=== PATIENT | male | born 1940 | race Caucasian/White ===

== ENCOUNTER → 2018-03-13 | Outpatient (CLI) | payer OTHER ==
[~2018-03-13] MED LIST: ATENOLOL-CHLOR1 EAC1 PO; CLOPIDOGREL75 MG PO
--- NOTE | 2018-03-13 09:28 | Diagnostic Imaging Report ---
PROCEDURE: X-RAY CHEST, TWO VIEWS COMPARISON: Patients [facility], DX, CHEST 2 VIEWS, 04/16/2017, 8:46. INDICATIONS: CHRONIC OBSTRUCTIVE PULMONARY DISORDER FINDINGS: LUNGS: No consolidations or edema. Lungs are hyperexpanded with flattening of the hemidiaphragms. PLEURA: No effusions or pneumothorax. HEART \T\ MEDIASTINUM: The heart is within normal size-limits. Prominent epicardial fat pads. BONES \T\ SOFT TISSUES: Degenerative changes of the spine. CONCLUSION: No acute thoracic abnormality. Vlad Sams D.O. Dictated by: Vlad Sams D.O. on 03/13/2018 at 9:31 Electronically approved by: Vlad Sams D.O. on 03/13/2018 at 9:31
== END ==
LOC: RAD 08:27
PROVIDERS: ATTEND Family Medicine
DX: J44.9 Chronic obstructive pulmonary disease, unspecified (principal)
CPT/HCPCS: 71046

== ENCOUNTER 2025-04-26 10:24 | Inpatient (IN) | payer MEDICARE, OTHER ==
[2025-04-26] VITALS (9 sets, daily range): BP systolic 129–137; BP diastolic 59–66; PULSE 58–89; RESP 16–18; TEMP 97.3–98.1; O2SAT 97–100
[~2025-04-26] VITALS: Ht 180.3 cm; Wt 104.3 kg
[2025-04-26] MEDS ORDERED: Vancomycin IV 1.25 GM in SODIUM CHLORIDE 0.9% 250ML 250 ML IV SCH (10:45)
[2025-04-26] MEDS ORDERED: LOSARTAN POTAS100 MG PO (10:49)
[2025-04-26] MEDS ORDERED: AMLODIPINE BESYL5 MG PO (10:49)
[2025-04-26] MEDS ORDERED: ATORVASTATIN CA40 MG PO (10:49)
[2025-04-26] MEDS ORDERED: FUROSEMIDE20 MG PO (10:49)
[2025-04-26] MEDS ORDERED: ASPIRIN EC81 MG PO (10:49)
[2025-04-26] MEDS ORDERED: LOPRESSOR25 MG PO (10:49)
[2025-04-26] MEDS ORDERED: GABAPENTIN300 MG PO (10:49)
[2025-04-26] MEDS ORDERED: ELIQUIS2.5 MG PO (10:49)
[2025-04-26] MEDS ORDERED: AMIODARONE HCL200 MG PO (10:49)
[2025-04-26 11:07] LABS: BASOPHILS % 0.6 % (0.0-1.0); EOSINOPHILS % 1.3 % (0.0-6.0); LYMPHOCYTES % 12.1 % (18.0-39.1); MONOCYTES % 8.1 % (4.4-11.3); NEUTROPHILS % 77.5 % (38.7-80.0); RED CELL DISTRIBUTION WIDTH 16.6 % (11.7-14.4)
[2025-04-26] MEDS: CEFEPIME 2 GM in SODIUM CHLORIDE 0.9% 100 ML IV ONE (11:10)
[2025-04-26 11:25] LABS: EST GLOMERULAR FILTRATION RATE 35.0 ML/MIN (>=60)
[2025-04-26] MEDS: Vancomycin IV 1.25 GM in SODIUM CHLORIDE 0.9% 250ML 250 ML IV ONE (12:21)
[2025-04-26] MEDS: Vancomycin IV 2 GM in SODIUM CHLORIDE 0.9% 250ML 250 ML IV ONE (12:27)
[2025-04-26] MEDS ORDERED: ONDANSETRON HCL INJ 2MG/ML 2ML 2 MG/ML VIAL IV PRN (13:45)
[2025-04-26] MEDS ORDERED: SODIUM CHLORIDE FLUSH 10 ML SYR INJ PRN (13:45)
[2025-04-26] MEDS ORDERED: HYDROCODONE/APAP 5MG-325MG TAB PO PRN (13:45)
[2025-04-26] MEDS ORDERED: DOCUSATE SODIUM 100 MG CAP PO PRN (17:15)
[2025-04-26] MEDS ORDERED: METOPROLOL TARTRATE INJ 1 MG/ML VIAL IV PRN (17:15)
[2025-04-26] MEDS ORDERED: ACETAMINOPHEN 325 MG TAB PO PRN (17:15)
[2025-04-26] MEDS ORDERED: ALBUTEROL/IPRATROPIUM 3 ML NEB NEB PRN (17:15)
[2025-04-26] MEDS: SODIUM CHLORIDE 0.45% 1,000 ML IV SCH (18:14)
[2025-04-26] MEDS: ATORVASTATIN 40 MG TAB PO SCH (21:31)
[2025-04-26] MEDS: CALCIUM CARBONATE/VITAMIN D3 500 MG TAB PO SCH (21:31)
[2025-04-27] VITALS (8 sets, daily range): BP systolic 134–151; BP diastolic 56–66; PULSE 53–78; RESP 12–20; TEMP 97.5–98; O2SAT 96–100
[2025-04-27 06:57] LABS: BASOPHILS % 0.7 % (0.0-1.0); EOSINOPHILS % 3.7 % (0.0-6.0); LYMPHOCYTES % 21.0 % (18.0-39.1); MONOCYTES % 10.2 % (4.4-11.3); NEUTROPHILS % 64.0 % (38.7-80.0); RED CELL DISTRIBUTION WIDTH 16.3 % (11.7-14.4)
[2025-04-27 07:29] LABS: EST GLOMERULAR FILTRATION RATE 53.0 ML/MIN (>=60)
[2025-04-27] MEDS: Doxycycline IV 100 MG in SODIUM CHLORIDE 0.9% 100 ML IV SCH (09:53)
[2025-04-27] MEDS: AMIODARONE HCL 200 MG TAB PO SCH (09:54)
[2025-04-27] MEDS: METOPROLOL TARTRATE 25 MG TAB PO SCH (09:55)
[2025-04-27] MEDS: AMLODIPINE BESYLATE 5 MG TAB PO SCH (09:55)
[2025-04-27] MEDS: MELATONIN 3 MG TAB PO PRN (20:42)
[2025-04-28] VITALS: BP 136/54; PULSE 60; RESP 20; TEMP 98.1; O2SAT 96
[2025-04-28 04:00] VITALS: BP 136/63; PULSE 60; RESP 20; TEMP 98.6; O2SAT 96
[2025-04-28 08:00] VITALS: BP 147/77; PULSE 79; RESP 18; TEMP 98.1; O2SAT 97
[2025-04-28 08:27] VITALS: BP 147/77; PULSE 79; RESP 18; TEMP 98.1; O2SAT 97
[2025-04-28 12:00] VITALS: BP 130/65; PULSE 60; RESP 17; TEMP 97.5; O2SAT 98
[2025-04-28] MEDS ORDERED: DOXYCYCLINE HY100 MG PO (13:26)
[2025-04-28] MEDS ORDERED: CEPHALEXIN500 MG PO (13:26)
== END 2025-04-28 15:15 | disposition home or self-care (01) | DRG 603 ==
LOC: ER 10:31 → ERHOLD 13:40 → MED/SURG3 14:33 → OBSVTOIN 04-27 13:28
PROVIDERS: ADMIT Internal Medicine; ATTEND Internal Medicine
DX: L03.114 Cellulitis of left upper limb (principal); N17.9 Acute kidney failure, unspecified; I48.20 Chronic atrial fibrillation, unspecified; S62.112A Displaced fracture of triquetrum [cuneiform] bone, left wrist, initial encounter for closed fracture; I25.10 Atherosclerotic heart disease of native coronary artery without angina pectoris; I10 Essential (primary) hypertension; E66.9 Obesity, unspecified; Z68.32 Body mass index [BMI] 32.0-32.9, adult; W22.8XXA Striking against or struck by other objects, initial encounter; Z79.02 Long term (current) use of antithrombotics/antiplatelets; Z95.5 Presence of coronary angioplasty implant and graft; Z95.1 Presence of aortocoronary bypass graft; Z90.49 Acquired absence of other specified parts of digestive tract; Z87.891 Personal history of nicotine dependence
CPT/HCPCS: 36415; 80053; 85025; 87040; 93971; 94799; 99284; G0378; J0692; J0696; J3373; J7050